=== PATIENT | female | born 1955 | race Caucasian/White ===

== ENCOUNTER 2017-07-16 07:18 | Emergency (ER) | payer OTHER ==
[2017-07-16] MEDS: SOD CHLORIDE 0.9% 500 ML IV (09:44)
[2017-07-16 10:40] LABS: ADD MAN DIFF? NO
[2017-07-16 10:46] LABS: WHITE BLOOD COUNT 11.3 10^3/ul (4.8-10.8)
[2017-07-16 10:46] LABS: BASOPHILS % 0.2 % (0.0-2.0); HEMOGLOBIN 13.5 g/dl (12.0-16.0); LYMPHOCYTES # 1.1 10^3/ul (0.8-2.9); LYMPHOCYTES % 10.1 % (15.0-51.0); MEAN CORPUSCULAR HEMOGLOBIN 27.1 pg (29.0-33.0); MEAN CORPUSCULAR HGB CONC 32.9 g/dl (32.0-37.0); MEAN CORPUSCULAR VOLUME 82.3 fl (82.0-101.0); MEAN PLATELET VOLUME 10.6 fl (7.4-10.4); MONOCYTE # 0.5 10^3/ul (0.3-0.9); MONOCYTES % 4.1 % (0.0-11.0); NEUTROPHIL # 9.7 10^3/ul (1.6-7.5); NEUTROPHILS % 85.2 % (39.0-77.0); PLATELET COUNT 178 10^3/UL (140-415); RED BLOOD COUNT 4.98 10^6/ul (4.20-5.40); RED CELL DISTRIBUTION WIDTH 13.8 % (11.5-14.5)
[2017-07-16 10:54] LABS: ADD UMIC YES; UR ASCORBIC ACID 40 mg/dL (NEGATIVE); UR BACTERIA FEW /HPF (NONE SEEN); UR BILIRUBIN (Dip) NEGATIVE (NEGATIVE); UR BLOOD (Dip) 3+ mg/dL (NEGATIVE); UR CLARITY SLIGHTLY CLOUDY (CLEAR); UR COLOR YELLOW (YELLOW); UR GLUCOSE (Dip) NEGATIVE (NEGATIVE); UR KETONES (Dip) NEGATIVE (NEGATIVE); UR LEUKOCYTE ESTERASE (Dip) NEGATIVE Leu/ul (NEGATIVE); UR NITRITE (Dip) NEGATIVE (NEGATIVE); UR RBC > 182 /HPF (0-5); UR SPECIFIC GRAVITY (Dip) 1.016 (1.003-1.030); UR SQUAMOUS EPITHELIAL CELL FEW /HPF (FEW); UR TOTAL PROTEIN (Dip) NEGATIVE (NEGATIVE); UR UROBILINOGEN (Dip) NEGATIVE (NEGATIVE); UR WBC 3 /HPF (0-5)
[2017-07-16 11:01] LABS: ALANINE AMINOTRANSFERASE 34 IU/L (13-69); ALBUMIN 4.7 g/dl (3.3-4.9); ALBUMIN/GLOBULIN RATIO 1.46; ALKALINE PHOSPHATASE 63 IU/L (42-121); ANION GAP 17 (8-16); ASPARTATE AMINO TRANSFERASE 24 IU/L (15-46); BILIRUBIN,INDIRECT 0.3 mg/dl (0-1.1); BILIRUBIN,TOTAL 0.3 mg/dl (0.2-1.3); BLOOD UREA NITROGEN 23 mg/dl (7-20); CARBON DIOXIDE 27 mmol/L (21-31); CHLORIDE 103 mmol/L (97-110); CREATININE 0.91 mg/dl (0.44-1.00); GLUCOSE 118 mg/dl (70-220); LIPASE 44 U/L (23-300); POTASSIUM 4.2 mmol/L (3.5-5.1); SODIUM 143 mmol/L (135-144); TOTAL PROTEIN 7.9 g/dl (6.1-8.1)
== END 2017-07-16 11:57 | disposition home or self-care (01) ==
LOC: E/R 07:18
DX: R10.84 Generalized abdominal pain (principal); R31.21 Asymptomatic microscopic hematuria; I10 Essential (primary) hypertension; R51 Headache; Z79.82 Long term (current) use of aspirin
CPT/HCPCS: 36415; 70450; 80053; 81001; 83690; 85025; 99285-25

== ENCOUNTER 2017-08-02 05:44 | Inpatient (IN) | payer OTHER ==
[2017-08-02] MEDS: SOD CHLORIDE 0.9% 1,000 ML IV ×4 (07:16→21:30)
[2017-08-02] MEDS: ONDANSETRON 4 MG INJ IV ×2 (07:16→23:25)
[2017-08-02] MEDS: morphine 4 MG/ML VIAL IV (07:16)
[2017-08-02 07:46] LABS: ADD MAN DIFF? NO
[2017-08-02 07:50] LABS: WHITE BLOOD COUNT 10.8 10^3/ul (4.8-10.8)
[2017-08-02 07:50] LABS: BASOPHILS % 0.3 % (0.0-2.0); EOSINOPHILS # 0.1 10^3/ul (0.0-0.5); EOSINOPHILS % 0.5 % (0.0-7.0); HEMATOCRIT 43.7 % (37.0-47.0); LYMPHOCYTES # 1.2 10^3/ul (0.8-2.9); LYMPHOCYTES % 11.4 % (15.0-51.0); MEAN CORPUSCULAR HEMOGLOBIN 26.7 pg (29.0-33.0); MEAN CORPUSCULAR VOLUME 83.4 fl (82.0-101.0); MEAN PLATELET VOLUME 11.4 fl (7.4-10.4); MONOCYTE # 0.6 10^3/ul (0.3-0.9); MONOCYTES % 5.4 % (0.0-11.0); NEUTROPHIL # 8.9 10^3/ul (1.6-7.5); NEUTROPHILS % 81.9 % (39.0-77.0); PLATELET COUNT 196 10^3/UL (140-415); RED BLOOD COUNT 5.24 10^6/ul (4.20-5.40); RED CELL DISTRIBUTION WIDTH 13.4 % (11.5-14.5)
[2017-08-02 08:11] LABS: ALANINE AMINOTRANSFERASE 36 IU/L (13-69); ALBUMIN 4.2 g/dl (3.3-4.9); ALBUMIN/GLOBULIN RATIO 1.27; ALKALINE PHOSPHATASE 74 IU/L (42-121); ANION GAP 18 (8-16); ASPARTATE AMINO TRANSFERASE 21 IU/L (15-46); BILIRUBIN,INDIRECT 0.3 mg/dl (0-1.1); BILIRUBIN,TOTAL 0.3 mg/dl (0.2-1.3); BLOOD UREA NITROGEN 19 mg/dl (7-20); CALCIUM 9.4 mg/dl (8.4-10.2); CARBON DIOXIDE 25 mmol/L (21-31); CHLORIDE 105 mmol/L (97-110); CREATININE 0.94 mg/dl (0.44-1.00); GLUCOSE 130 mg/dl (70-220); LIPASE 52 U/L (23-300); POTASSIUM 3.9 mmol/L (3.5-5.1); SODIUM 144 mmol/L (135-144); TOTAL PROTEIN 7.5 g/dl (6.1-8.1)
[2017-08-02] MEDS: KETOROLAC 30 MG INJ IV (08:23)
[2017-08-02] MEDS: FENTAnyl 50 MCG/ML VIAL IV (08:23)
[2017-08-02 08:27] LABS: TROPONIN-I < 0.012 ng/ml (0.00-0.12)
[2017-08-02 08:51] LABS: ADD UMIC YES; UR ASCORBIC ACID NEGATIVE (NEGATIVE); UR BILIRUBIN (Dip) NEGATIVE (NEGATIVE); UR BLOOD (Dip) 2+ mg/dL (NEGATIVE); UR CLARITY CLEAR (CLEAR); UR COLOR YELLOW (YELLOW); UR GLUCOSE (Dip) NEGATIVE (NEGATIVE); UR KETONES (Dip) NEGATIVE (NEGATIVE); UR LEUKOCYTE ESTERASE (Dip) NEGATIVE Leu/ul (NEGATIVE); UR NITRITE (Dip) NEGATIVE (NEGATIVE); UR RBC 3 /HPF (0-5); UR SPECIFIC GRAVITY (Dip) 1.014 (1.003-1.030); UR TOTAL PROTEIN (Dip) NEGATIVE (NEGATIVE); UR UROBILINOGEN (Dip) NEGATIVE (NEGATIVE); UR WBC 2 /HPF (0-5)
[2017-08-02] MEDS ORDERED: HYDROCODONE/APAP (5/325) TAB PO (11:30)
[2017-08-02] MEDS ORDERED: BISACODYL 10 MG SUPP PR (11:30)
[2017-08-02] MEDS ORDERED: MAGNESIUM HYDROXIDE 30ML CUP PO (11:30)
[2017-08-02] MEDS ORDERED: DOCUSATE SODIUM 100 MG CAP PO (11:30)
[2017-08-02] MEDS ORDERED: NACL 0.9% 3 ML SYG IV (11:30)
[2017-08-02] MEDS ORDERED: ACETAMINOPHEN 650 MG SUPP PR (11:30)
[2017-08-02] MEDS: morphine 2 MG INJ IV (23:26)
[2017-08-03 05:03] LABS: ADD MAN DIFF? NO
[2017-08-03 05:09] LABS: BASOPHILS % 0.2 % (0.0-2.0); EOSINOPHILS # 0.1 10^3/ul (0.0-0.5); EOSINOPHILS % 0.6 % (0.0-7.0); HEMATOCRIT 39.9 % (37.0-47.0); HEMOGLOBIN 12.9 g/dl (12.0-16.0); LYMPHOCYTES # 1.7 10^3/ul (0.8-2.9); LYMPHOCYTES % 21.3 % (15.0-51.0); MEAN CORPUSCULAR HGB CONC 32.3 g/dl (32.0-37.0); MEAN CORPUSCULAR VOLUME 83.5 fl (82.0-101.0); MEAN PLATELET VOLUME 11.5 fl (7.4-10.4); MONOCYTE # 0.6 10^3/ul (0.3-0.9); MONOCYTES % 7.7 % (0.0-11.0); NEUTROPHIL # 5.6 10^3/ul (1.6-7.5); NEUTROPHILS % 69.8 % (39.0-77.0); PLATELET COUNT 162 10^3/UL (140-415); RED BLOOD COUNT 4.78 10^6/ul (4.20-5.40); RED CELL DISTRIBUTION WIDTH 13.8 % (11.5-14.5)
[2017-08-03 05:34] LABS: INR 1.11; PROTIME 14.5 Sec (11.9-14.9); PT RATIO 1.1
[2017-08-03 05:35] LABS: PARTIAL THROMBOPLASTIN TIME 28.8 Sec (25.0-35.0)
[2017-08-03 05:44] LABS: ALANINE AMINOTRANSFERASE 30 IU/L (13-69); ALBUMIN 3.4 g/dl (3.3-4.9); ALBUMIN/GLOBULIN RATIO 1.13; ALKALINE PHOSPHATASE 55 IU/L (42-121); ANION GAP 14 (8-16); ASPARTATE AMINO TRANSFERASE 18 IU/L (15-46); BILIRUBIN,INDIRECT 0.3 mg/dl (0-1.1); BILIRUBIN,TOTAL 0.3 mg/dl (0.2-1.3); BLOOD UREA NITROGEN 19 mg/dl (7-20); CALCIUM 8.6 mg/dl (8.4-10.2); CARBON DIOXIDE 27 mmol/L (21-31); CHLORIDE 109 mmol/L (97-110); CHOL/HDL RATIO 3.8 RATIO; CHOLESTEROL 134 mg/dl (100-200); CREATININE 1.34 mg/dl (0.44-1.00); GLUCOSE 116 mg/dl (70-220); HDL CHOLESTEROL 35 mg/dl (35-98); LDL CHOLESTEROL,CALCULATED 71 mg/dl; MAGNESIUM 1.8 mg/dl (1.7-2.5); PHOSPHORUS 4.4 mg/dl (2.5-4.9); POTASSIUM 4.4 mmol/L (3.5-5.1); SODIUM 146 mmol/L (135-144); TOTAL PROTEIN 6.4 g/dl (6.1-8.1); TRIGLYCERIDES 139 mg/dl (0-149)
[2017-08-03 05:51] LABS: HEMOGLOBIN A1C 5.5 % (0-5.9)
[2017-08-03 05:55] LABS: FREE THYROXINE INDEX (Calc) 2.19 ug/ml (0.65-3.89); T3 UPTAKE 35.9 % (23.5-40.5); T4 (THYROXINE) 6.1 ug/dl (5.5-11.0)
[2017-08-03] MEDS: HYDROCODONE/APAP (5/325) TAB PO (06:36)
[2017-08-03] MEDS: PANTOPRAZOLE 40 MG INJ IV (06:44)
[2017-08-03] MEDS ORDERED: EPHEDrine SULFATE 50 MG/5 ML SYG (07:00)
[2017-08-03] MEDS ORDERED: ACETAMINOPHEN 1000 MG/100 ML IVPB (07:00)
[2017-08-03] MEDS: SOD CHLORIDE 0.9% 1,000 ML IV ×2 (08:57→17:02)
[2017-08-03] MEDS ORDERED: ACET/BUTAL/CAFF TAB PO (11:00)
[2017-08-03] MEDS: morphine 2 MG INJ IV ×2 (11:53→19:58)
[2017-08-03] MEDS ORDERED: ROCURONIUM 50 MG INJ (18:38)
[2017-08-03] MEDS ORDERED: FENTAnyl 50 MCG/ML VIAL (18:38)
[2017-08-03] MEDS ORDERED: PROPOFOL 20 ML (18:38)
[2017-08-03] MEDS ORDERED: CEFAZOLIN 1 GM INJ (18:38)
[2017-08-03] MEDS ORDERED: MIDAZOLAM 1 MG/ML 2 ML INJ (18:38)
[2017-08-03] MEDS ORDERED: KETOROLAC 30 MG INJ (19:15)
[2017-08-03] MEDS ORDERED: METOCLOPRAMIDE 10 MG INJ (19:15)
[2017-08-03] MEDS ORDERED: SUGAMMADEX SODIUM 200 MG/2 ML VIAL IV (19:15)
[2017-08-03] MEDS ORDERED: ONDANSETRON 4 MG INJ (19:15)
[2017-08-03] MEDS ORDERED: DEXAMETHASONE 4 MG/ML 1 ML INJ (19:15)
[2017-08-03] MEDS ORDERED: HYDROmorphONE (0.2 MG/ML) 10ML SYG IV ×3 (19:30)
[2017-08-03] MEDS ORDERED: OXYCODONE/ACETAMINOPHEN (5/325) TAB PO ×2 (19:30)
[2017-08-03] MEDS ORDERED: ONDANSETRON 4 MG INJ IV (19:30)
[2017-08-03] MEDS ORDERED: METOCLOPRAMIDE 10 MG INJ IV (19:30)
[2017-08-03] MEDS ORDERED: FENTAnyl 50 MCG/ML VIAL IV ×3 (19:30)
[2017-08-03] MEDS ORDERED: MEPERIDINE 25 MG INJ IV (19:30)
[2017-08-03] MEDS ORDERED: KETOROLAC 30 MG INJ IV (19:30)
[2017-08-03] MEDS ORDERED: LABETALOL HCL 20MG INJ IV (19:30)
[2017-08-03] MEDS ORDERED: EPHEDrine SULFATE 50 MG/5 ML SYG IV (19:30)
[2017-08-03] MEDS ORDERED: DIPHENHYDRAMINE 50 MG INJ IV (19:30)
[2017-08-03] MEDS ORDERED: FUROSEMIDE 20 MG INJ (19:34)
[2017-08-04] MEDS: SOD CHLORIDE 0.9% 1,000 ML IV ×2 (04:05→13:57)
[2017-08-04 04:43] LABS: ADD MAN DIFF? NO
[2017-08-04 04:45] LABS: WHITE BLOOD COUNT 7.3 10^3/ul (4.8-10.8)
[2017-08-04 04:45] LABS: BASOPHILS % 0.1 % (0.0-2.0); HEMATOCRIT 37.8 % (37.0-47.0); HEMOGLOBIN 12.3 g/dl (12.0-16.0); LYMPHOCYTES # 0.8 10^3/ul (0.8-2.9); LYMPHOCYTES % 10.5 % (15.0-51.0); MEAN CORPUSCULAR HEMOGLOBIN 27.4 pg (29.0-33.0); MEAN CORPUSCULAR HGB CONC 32.5 g/dl (32.0-37.0); MEAN CORPUSCULAR VOLUME 84.2 fl (82.0-101.0); MEAN PLATELET VOLUME 11.3 fl (7.4-10.4); MONOCYTE # 0.1 10^3/ul (0.3-0.9); NEUTROPHIL # 6.4 10^3/ul (1.6-7.5); PLATELET COUNT 164 10^3/UL (140-415); RED BLOOD COUNT 4.49 10^6/ul (4.20-5.40); RED CELL DISTRIBUTION WIDTH 13.7 % (11.5-14.5)
[2017-08-04 05:06] LABS: ANION GAP 17 (8-16); BLOOD UREA NITROGEN 19 mg/dl (7-20); CALCIUM 8.9 mg/dl (8.4-10.2); CARBON DIOXIDE 26 mmol/L (21-31); CHLORIDE 106 mmol/L (97-110); GLUCOSE 172 mg/dl (70-220); POTASSIUM 4.7 mmol/L (3.5-5.1); SODIUM 144 mmol/L (135-144)
[2017-08-04] MEDS: PANTOPRAZOLE 40 MG INJ IV (06:06)
[2017-08-04] MEDS: ACETAMINOPHEN 325 MG TAB PO (09:34)
== END 2017-08-04 21:45 | disposition home or self-care (01) | DRG 691 ==
LOC: E/R 05:44 → MS3 11:47
PROC: 0TF4XZZ Fragmentation in Left Kidney Pelvis, External Approach (ICD-10-PCS; principal; 2017-08-03 17:30)
PROC: 0T778DZ Dilation of Left Ureter with Intraluminal Device, Via Natural or Artificial Opening Endoscopic (ICD-10-PCS; 2017-08-03 17:30)
DX: N13.2 Hydronephrosis with renal and ureteral calculous obstruction (principal); N17.9 Acute kidney failure, unspecified; E66.9 Obesity, unspecified; Z68.37 Body mass index [BMI] 37.0-37.9, adult; Z71.3 Dietary counseling and surveillance; R51 Headache; Z79.82 Long term (current) use of aspirin; Z90.710 Acquired absence of both cervix and uterus; I10 Essential (primary) hypertension; F17.290 Nicotine dependence, other tobacco product, uncomplicated
CPT/HCPCS: 36415; 71045; 74018; 74176; 74430; 80048; 80053; 80061; 81001; 83036; 83690; 83735; 84100; 84436; 84443; 84479; 84484; 85025; 85610; 85730; 87086; 93005; 96374; 96375; 99285-25

== ENCOUNTER 2017-10-19 10:24 | Day surgery (SDC) | payer OTHER ==
[~2017-10-19 10:24] MED LIST: CEFAZOLIN 1 GM INJ; LIDOCAINE 2% (SDV) 5 ML INJ
[2017-10-19] MEDS ORDERED: CEFTRIAXONE 1 GM/NS 50 ML IVPB (11:00)
[2017-10-19] MEDS ORDERED: FENTAnyl 50 MCG/ML VIAL (13:05)
[2017-10-19] MEDS ORDERED: DEXAMETHASONE 4 MG/ML 1 ML INJ (13:16)
[2017-10-19] MEDS ORDERED: ONDANSETRON 4 MG INJ (13:16)
[2017-10-19] MEDS ORDERED: ROCURONIUM 50 MG INJ (13:17)
[2017-10-19] MEDS ORDERED: PROPOFOL 20 ML (13:17)
[2017-10-19] MEDS ORDERED: FUROSEMIDE 20 MG INJ (13:54)
[2017-10-19] MEDS ORDERED: SUGAMMADEX SODIUM 200 MG/2 ML VIAL IV (14:02)
[2017-10-19] MEDS ORDERED: DIPHENHYDRAMINE 50 MG INJ IV (14:30)
[2017-10-19] MEDS ORDERED: ALBUTEROL 0.083% (NEB) 2.5 MG/3 ML AMP HHN (14:30)
[2017-10-19] MEDS ORDERED: FENTAnyl 50 MCG/ML VIAL IV ×3 (14:30)
[2017-10-19] MEDS ORDERED: HYDROCODONE/APAP (5/325) TAB PO (14:30)
[2017-10-19] MEDS ORDERED: MEPERIDINE 25 MG INJ IV (14:30)
[2017-10-19] MEDS ORDERED: KETOROLAC 30 MG INJ IV (14:30)
[2017-10-19] MEDS ORDERED: HYDROmorphONE 1 MG/5 ML IV SYRINGE IV ×3 (14:30)
[2017-10-19] MEDS ORDERED: EPHEDrine SULFATE 50 MG/5 ML SYG IV (14:30)
[2017-10-19] MEDS ORDERED: ONDANSETRON 4 MG INJ IV ×2 (14:30)
[2017-10-19] MEDS ORDERED: hydrALAzine 20 MG INJ IV (14:30)
[2017-10-19] MEDS ORDERED: LABETALOL HCL 20MG INJ IV (14:30)
[2017-10-22] MEDS ORDERED: CEFTRIAXONE 1 GM/NS 50 ML IVPB (12:00)
== END 2017-10-19 16:11 | disposition home or self-care (01) ==
LOC: SDS 10:24
DX: N20.0 Calculus of kidney (principal); I10 Essential (primary) hypertension; E78.5 Hyperlipidemia, unspecified
CPT/HCPCS: 50590; 74430; 87086; 88300

== ENCOUNTER 2018-07-06 18:29 | Emergency (ER) | payer SELFPAY, OTHER | END 2018-07-06 22:50 | disposition left against medical advice (07) | LOC: E/R 18:29 | DX: Z53.21 Procedure and treatment not carried out due to patient leaving prior to being seen by health care provider (principal) | CPT/HCPCS: 93005 ==